=== PATIENT | male | born 1965 | race Caucasian/White ===

== ENCOUNTER 2017-09-11 08:58 | Emergency (ER) | payer SELFPAY ==
[~2017-09-11] VITALS: Ht 170.2 cm; Wt 100.0 kg
[2017-09-11] MEDS ORDERED: SODIUM CHLORIDE 0.9% 1,000 ML IV ONE (11:40)
[2017-09-11] MEDS ORDERED: ONDANSETRON HCL 4MG/2ML VIAL IV STA (11:40)
[2017-09-11] MEDS ORDERED: KETOROLAC 30MG/ML VIAL IV STA (11:40)
[2017-09-11 12:12] LABS: BASOPHILS % 0.7 % (0.0-2.0); EOSINOPHILS % 0.3 % (0.0-5.0); HEMATOCRIT. 44.1 % (42.0-52.0); LYMPHOCYTES % 28.1 % (20.0-50.0); MEAN CORPUSCULAR HEMOGLOBIN 28.5 pg (28.0-32.0); MEAN CORPUSCULAR VOLUME 83.7 fL (80.0-94.0); MEAN PLATELET VOLUME 7.7 fl (7.4-10.4); MONOCYTES % 9.5 % (2.0-8.0); NEUTROPHILS % 61.4 % (40.0-76.0); PLATELET 211 x1000/uL (130-400); RED BLOOD CELL COUNT 5.26 mill/uL (4.7-6.1); RED CELL DISTRIBUTION WIDTH 14.8 % (11.6-14.6)
[2017-09-11 12:18] LABS: CHLORIDE 103 mEq/L (98-107)
[2017-09-11 12:26] LABS: CLARITY URINE CLEAR (CLEAR); COLOR URINE YELLOW (YELLOW); GLUCOSE URINE NEGATIVE (NEGATIVE); KETONES URINE NEGATIVE (NEGATIVE); LEUKOCYTE ESTERASE URINE NEGATIVE (NEGATIVE); NITRITE URINE NEGATIVE (NEGATIVE); OCCULT BLOOD URINE NEGATIVE (NEGATIVE); PH URINE 5.5 (4.5-8.0); PROTEIN URINE 1+ (NEGATIVE); SPECIFIC GRAVITY URINE 1.021 (1.005-1.030); UROBILINOGEN URINE 0.2 E.U./dL (0.2-1.0)
[2017-09-11 12:27] LABS: CARBON DIOXIDE 26 mEq/L (21-32)
[2017-09-11 14:25] VITALS: BP 142/82
== END 2017-09-11 14:25 | disposition home or self-care (01) ==
LOC: ER 09:09
DX: K76.0 Fatty (change of) liver, not elsewhere classified (principal); R10.11 Right upper quadrant pain; R51 Headache; F10.20 Alcohol dependence, uncomplicated; Y90.9 Presence of alcohol in blood, level not specified; Z71.41 Alcohol abuse counseling and surveillance of alcoholic; I10 Essential (primary) hypertension; E78.00 Pure hypercholesterolemia, unspecified
CPT/HCPCS: 36415; 76705; 80053; 81001; 83690; 85025; 96361; 96374; 96375; 99285; J1885; J2405; J7030; J7050; Z7610

== ENCOUNTER 2018-07-11 12:12 | Inpatient (IN) | payer SELFPAY ==
[~2018-07-11] VITALS: Ht 172.7 cm; Wt 90.7 kg
[2018-07-11] MEDS ORDERED: MORPHINE SULFATE 4 MG/ML CPJ (NOT FOR IM USE) IV STA ×2 (12:44→15:37)
[2018-07-11] MEDS ORDERED: ONDANSETRON HCL 4MG/2ML INJ IV STA ×2 (12:44→15:37)
[2018-07-11] MEDS ORDERED: SODIUM CHLORIDE 0.9% 1,000 ML IV ONE (12:44)
[2018-07-11 14:00] LABS: BASOPHILS % 0.5 % (0.0-2.0); EOSINOPHILS % 0.1 % (0.0-5.0); HEMATOCRIT. 45.3 % (42.0-52.0); HEMOGLOBIN. 15.6 g/dL (14.0-18.0); MEAN CORPUSCULAR HEMOGLOBIN 30.1 pg (28.0-32.0); MEAN CORPUSCULAR VOLUME 87.8 fL (80.0-94.0); MEAN PLATELET VOLUME 7.7 fl (7.4-10.4); MONOCYTES % 8.4 % (2.0-8.0); PLATELET 261 x1000/uL (130-400); RED BLOOD CELL COUNT 5.16 mill/uL (4.7-6.1); RED CELL DISTRIBUTION WIDTH 14.9 % (11.6-14.6)
[2018-07-11 14:09] LABS: INR 1.2; PROTHROMBIN TIME 11.9 sec (9.1-11.1)
[2018-07-11 14:19] LABS: CHLORIDE 102 mEq/L (98-107)
[2018-07-11 15:21] LABS: CLARITY URINE CLEAR (CLEAR); COLOR URINE ORANGE (YELLOW); KETONES URINE TRACE (NEGATIVE); LEUKOCYTE ESTERASE URINE TRACE (NEGATIVE); NITRITE URINE NEGATIVE (NEGATIVE); OCCULT BLOOD URINE NEGATIVE (NEGATIVE); PH URINE 5.5 (4.5-8.0); PROTEIN URINE TRACE (NEGATIVE); SPECIFIC GRAVITY URINE 1.021 (1.005-1.030); UROBILINOGEN URINE 0.2 E.U./dL (0.2-1.0)
[2018-07-11] MEDS ORDERED: MAGNESIUM/ALUMINUM HYDROXIDE/SIMETHICONE 30ML UDC PO PRN (16:45)
[2018-07-11] MEDS ORDERED: HALOPERIDOL LACTATE 5MG/ML VIAL IM PRN (16:45)
[2018-07-11] MEDS ORDERED: NITROGLYCERIN 0.4MG TABLET SL SL PRN (16:45)
[2018-07-11] MEDS ORDERED: ONDANSETRON HCL 4MG/2ML INJ IV PRN (16:45)
[2018-07-11] MEDS ORDERED: CLONIDINE 0.1MG TABLET PO PRN (16:45)
[2018-07-11] MEDS ORDERED: GUAIFENESIN 200MG/10ML SUGAR FREE UDC PO PRN (16:45)
[2018-07-11] MEDS ORDERED: DOCUSATE SODIUM 100MG CAPSULE PO PRN (16:45)
[2018-07-11] MEDS ORDERED: ZOLPIDEM TARTRATE 5MG TABLET PO PRN (16:45)
[2018-07-11] MEDS ORDERED: KETOROLAC 15MG/ML VIAL IV PRN (16:45)
[2018-07-11] MEDS ORDERED: IPRATROPIUM/ALBUTEROL 0.5-3(2.5)MG/3ML NEB INH PRN (16:45)
[2018-07-11] MEDS ORDERED: ACETAMINOPHEN 325MG TABLET PO PRN (16:45)
[2018-07-11] MEDS ORDERED: MVI, ADULT NO.1 10 ML, FOLIC ACID 1 MG, THIAMINE HCL 100 MG in SODIUM CHLORIDE 0.9% 1,0... IV SCH ×4 (18:30)
[2018-07-11 21:00] VITALS: BP 162/93
[2018-07-11] MEDS ORDERED: ENOXAPARIN 40MG/0.4ML SYR SUBCUT SCH (21:11)
[2018-07-11] MEDS: SUCRALFATE 1 G/10 ML UDC PO SCH (21:49)
[2018-07-11] MEDS: METOCLOPRAMIDE 10MG/10 ML UDC PO SCH (21:50)
[2018-07-11] MEDS: METOPROLOL TARTRATE 25MG TABLET PO SCH (21:50)
[2018-07-11] MEDS: FAMOTIDINE 20MG TABLET PO SCH (21:50)
[2018-07-11 22:07] VITALS: BP 162/93
[2018-07-12] VITALS: BP 133/87
[2018-07-12 04:00] VITALS: BP 139/79
[2018-07-12] MEDS: SUCRALFATE 1 G/10 ML UDC PO SCH ×2 (06:29→12:36)
[2018-07-12] MEDS: METOCLOPRAMIDE 10MG/10 ML UDC PO SCH ×2 (06:29→12:36)
[2018-07-12 08:00] VITALS: BP 141/78
[2018-07-12] MEDS: FAMOTIDINE 20MG TABLET PO SCH (08:50)
[2018-07-12] MEDS: METOPROLOL TARTRATE 25MG TABLET PO SCH (08:50)
[2018-07-12 10:00] VITALS: BP 132/75
[2018-07-12] MEDS ORDERED: PNEUMOCOCCAL 23-VAL P-SAC VAC 0.5 ML IM ONE (10:00)
[2018-07-12 10:11] VITALS: BP 132/70
[2018-07-12 12:00] VITALS: BP 129/72
[2018-07-12 12:36] LABS: *AMPHETAMINES SCREEN URINE NEGATIVE (NEGATIVE); CANNABINOID URINE SCREEN NEGATIVE (NEGATIVE); PHENCYCLIDINE URINE SCREEN NEGATIVE (NEGATIVE)
[2018-07-12 12:37] LABS: *BARBITURATES SCREEN URINE NEGATIVE (NEGATIVE); *BENZODIAZEPINES SCREEN URINE NEGATIVE (NEGATIVE); *COCAINE SCREEN URINE NEGATIVE (NEGATIVE); METHADONE URINE SCREEN NEGATIVE (NEGATIVE); OPIATES URINE SCREEN PRESUMTIVE POSITIVE (NEGATIVE)
== END 2018-07-12 14:43 | disposition home or self-care (01) | DRG 241 ==
LOC: ER 12:37 → EDBEDREQ 15:17 → EDBEDREQTM 15:17 → 8WST 15:50 → EDBEDREQ 15:57 → EDBEDREQTM 15:57 → ENRESERV 20:04
PROVIDERS: ADMIT Internal Medicine; ATTEND Internal Medicine
DX: K29.70 Gastritis, unspecified, without bleeding (principal); E66.9 Obesity, unspecified; I10 Essential (primary) hypertension; F10.20 Alcohol dependence, uncomplicated; K43.2 Incisional hernia without obstruction or gangrene; Z71.41 Alcohol abuse counseling and surveillance of alcoholic; Z68.30 Body mass index [BMI] 30.0-30.9, adult; Z90.49 Acquired absence of other specified parts of digestive tract
CPT/HCPCS: 36415; 70450; 74176; 80053; 80305; 81003; 83036; 83690; 85025; 85610; 87086; 93005; 93970; 96361; 96374; 96375; 96376; 99285; G0482; J1650; J2270; J2405; J3411; J3490; J7030; J7040; J8597

== ENCOUNTER 2019-10-09 12:52 | Inpatient (IN) | payer MEDICAID ==
[~2019-10-09] VITALS: Ht 172.7 cm; Wt 100.7 kg
[2019-10-09] MEDS ORDERED: SODIUM CHLORIDE 0.9% 1,000 ML IV ONE ×2 (21:44→23:03)
[2019-10-09 22:50] LABS: CHLORIDE 101 mEq/L (98-107)
[2019-10-09 22:51] LABS: INR 1.1; PARTIAL THROMBOPLASTIN TIME 25.7 sec (23.4-31.0); PROTHROMBIN TIME 11.7 sec (9.6-11.0)
[2019-10-09 22:57] LABS: BASOPHILS % 0.5 % (0.0-2.0); EOSINOPHILS % 0.1 % (0.0-5.0); HEMATOCRIT. 49.8 % (42.0-52.0); HEMOGLOBIN. 17.5 g/dL (14.0-18.0); LYMPHOCYTES % 43.3 % (20.0-50.0); MEAN CORPUSCULAR HEMOGLOBIN 30.4 pg (28.0-32.0); MEAN CORPUSCULAR VOLUME 86.6 fL (80.0-94.0); MEAN PLATELET VOLUME 7.7 fl (7.4-10.4); MONOCYTES % 6.4 % (2.0-8.0); NEUTROPHILS % 49.7 % (40.0-76.0); PLATELET 198 x1000/uL (130-400); RED BLOOD CELL COUNT 5.75 mill/uL (4.7-6.1)
[2019-10-09 23:02] LABS: CLARITY URINE CLEAR (CLEAR); COLOR URINE DARK YELLOW (YELLOW); KETONES URINE TRACE (NEGATIVE); LEUKOCYTE ESTERASE URINE NEGATIVE (NEGATIVE); NITRITE URINE NEGATIVE (NEGATIVE); OCCULT BLOOD URINE 1+ (NEGATIVE); PROTEIN URINE 2+ (NEGATIVE); SPECIFIC GRAVITY URINE 1.022 (1.005-1.030)
[2019-10-09] MEDS ORDERED: ONDANSETRON HCL 4MG/2ML INJ IV STA (23:03)
[2019-10-09] MEDS ORDERED: MORPHINE SULFATE 4 MG/ML CPJ (NOT FOR IM USE) IV STA (23:03)
[2019-10-09 23:06] LABS: ETHANOL BLOOD 295 mg/dL
[2019-10-09 23:12] LABS: *AMPHETAMINES SCREEN URINE NEGATIVE (NEGATIVE); *BARBITURATES SCREEN URINE NEGATIVE (NEGATIVE); *BENZODIAZEPINES SCREEN URINE NEGATIVE (NEGATIVE); *COCAINE SCREEN URINE NEGATIVE (NEGATIVE); METHADONE URINE SCREEN NEGATIVE (NEGATIVE); OPIATES URINE SCREEN NEGATIVE (NEGATIVE); PHENCYCLIDINE URINE SCREEN NEGATIVE (NEGATIVE)
[2019-10-09 23:13] LABS: CANNABINOID URINE SCREEN NEGATIVE (NEGATIVE)
[2019-10-10] MEDS ORDERED: ONDANSETRON HCL 4MG/2ML INJ IV PRN (01:00)
[2019-10-10] MEDS ORDERED: MORPHINE SULFATE 2 MG/ML CPJ (NOT FOR IM USE) IV PRN (01:00)
[2019-10-10] MEDS ORDERED: ACETAMINOPHEN 650MG SUPP PR PRN (01:00)
[2019-10-10] MEDS: DEXT 5%/0.45% NACL 1000ML 1,000 ML IV SCH ×2 (01:40→21:54)
[2019-10-10] MEDS: MORPHINE SULFATE 2 MG/ML CPJ (NOT FOR IM USE) IV PRN ×5 (06:01→21:39)
[2019-10-10 11:00] VITALS: BP 148/88
[2019-10-10 11:39] VITALS: BP 176/111
[2019-10-10] MEDS ORDERED: LORAZEPAM 0.5MG TABLET PO PRN (11:45)
[2019-10-10 12:00] VITALS: BP 166/100
[2019-10-10] MEDS ORDERED: METOPROLOL TARTRATE 5MG/5ML VIAL IV SCH ×2 (14:00→18:00)
[2019-10-10 16:00] VITALS: BP 147/87
[2019-10-10 16:27] LABS: HEMATOCRIT 42.6 % (42.0-52.0); HEMOGLOBIN 14.8 g/dL (14.0-18.0); MEAN CORPUSCULAR HEMOGLOBIN 30.4 pg (28.0-32.0); MEAN CORPUSCULAR VOLUME 87.5 fL (80.0-94.0); PLATELET 135 x1000/uL (130-400); RED BLOOD CELL COUNT 4.87 mill/uL (4.7-6.1); RED CELL DISTRIBUTION WIDTH 14.6 % (11.6-14.6)
[2019-10-10 16:38] LABS: CHLORIDE 102 mEq/L (98-107)
[2019-10-10 18:00] VITALS: BP 186/116
[2019-10-10] MEDS: CLONIDINE 0.1MG TABLET PO PRN (19:47)
[2019-10-10 20:00] VITALS: BP 172/102
[2019-10-10] MEDS: HEPARIN 5000 UNITS/ML VIAL SUBCUT SCH (21:00)
[2019-10-11] VITALS: BP 156/98
[2019-10-11] MEDS: HEPARIN 5000 UNITS/ML VIAL SUBCUT SCH ×3 (00:46→20:51)
[2019-10-11 07:43] LABS: BASOPHILS % 0.5 % (0.0-2.0); EOSINOPHILS % 2.1 % (0.0-5.0); HEMATOCRIT. 39.5 % (42.0-52.0); HEMOGLOBIN. 13.8 g/dL (14.0-18.0); LYMPHOCYTES % 35.8 % (20.0-50.0); MEAN CORPUSCULAR HEMOGLOBIN 30.9 pg (28.0-32.0); MEAN CORPUSCULAR VOLUME 88.2 fL (80.0-94.0); MEAN PLATELET VOLUME 8.1 fl (7.4-10.4); MONOCYTES % 10.2 % (2.0-8.0); NEUTROPHILS % 51.4 % (40.0-76.0); PLATELET 117 x1000/uL (130-400); RED BLOOD CELL COUNT 4.48 mill/uL (4.7-6.1); RED CELL DISTRIBUTION WIDTH 14.9 % (11.6-14.6)
[2019-10-11] MEDS: DEXT 5%/0.45% NACL 1000ML 1,000 ML IV SCH (07:47)
[2019-10-11 08:00] LABS: CHLORIDE 102 mEq/L (98-107)
[2019-10-11] MEDS: MORPHINE SULFATE 2 MG/ML CPJ (NOT FOR IM USE) IV PRN ×2 (09:46→20:52)
[2019-10-11] MEDS ORDERED: MAGNESIUM 2 G PREMIX 50 ML IV SCH (11:00)
[2019-10-11 12:00] VITALS: BP 140/94
[2019-10-11] MEDS: DEXT 5%/0.45% NACL KCL 20MEQ/L 1,000 ML IV SCH ×2 (12:26→23:57)
[2019-10-11] MEDS ORDERED: POTASSIUM CHLORIDE 20MEQ/PACKET PO NR (12:30)
[2019-10-11] MEDS ORDERED: MAGNESIUM 2 G PREMIX 50 ML IV ONE (12:30)
[2019-10-11] MEDS: PANTOPRAZOLE SODIUM 40 MG/VIAL IV SCH ×2 (14:38→18:50)
[2019-10-11 16:00] VITALS: BP 154/90
[2019-10-11 20:00] VITALS: BP 171/95
[2019-10-11] MEDS: CLONIDINE 0.1MG TABLET PO PRN (20:50)
[2019-10-12] VITALS: BP 127/88
[2019-10-12 04:00] VITALS: BP 148/85
[2019-10-12 07:08] LABS: CHLORIDE 101 mEq/L (98-107)
[2019-10-12 07:11] LABS: BASOPHILS % 0.5 % (0.0-2.0); EOSINOPHILS % 2.8 % (0.0-5.0); HEMATOCRIT. 40.2 % (42.0-52.0); LYMPHOCYTES % 31.4 % (20.0-50.0); MEAN CORPUSCULAR HEMOGLOBIN 30.9 pg (28.0-32.0); MEAN CORPUSCULAR VOLUME 88.6 fL (80.0-94.0); MEAN PLATELET VOLUME 8.3 fl (7.4-10.4); MONOCYTES % 8.3 % (2.0-8.0); PLATELET 112 x1000/uL (130-400); RED BLOOD CELL COUNT 4.54 mill/uL (4.7-6.1); RED CELL DISTRIBUTION WIDTH 14.8 % (11.6-14.6)
[2019-10-12 07:29] LABS: HEPATITIS B SURFACE ANTIGEN NEGATIVE
[2019-10-12 07:59] LABS: HEPATITIS A AB IGM NEGATIVE (NEGATIVE)
[2019-10-12 08:40] VITALS: BP 159/98
[2019-10-12] MEDS: PANTOPRAZOLE SODIUM 40 MG/VIAL IV SCH ×2 (09:22→18:07)
[2019-10-12] MEDS: CLONIDINE 0.1MG TABLET PO PRN (09:23)
[2019-10-12] MEDS: HEPARIN 5000 UNITS/ML VIAL SUBCUT SCH ×3 (09:23→21:14)
[2019-10-12 12:26] VITALS: BP 129/86
[2019-10-12 17:08] VITALS: BP 137/80
[2019-10-12] MEDS: DEXT 5%/0.45% NACL KCL 20MEQ/L 1,000 ML IV SCH (18:09)
[2019-10-12] MEDS: MORPHINE SULFATE 2 MG/ML CPJ (NOT FOR IM USE) IV PRN (18:23)
[2019-10-12 20:00] VITALS: BP 149/84
[2019-10-12] MEDS: AMLODIPINE 2.5MG TABLET PO SCH (21:11)
[2019-10-13] VITALS: BP 130/66
[2019-10-13] MEDS: MORPHINE SULFATE 2 MG/ML CPJ (NOT FOR IM USE) IV PRN ×3 (01:53→21:16)
[2019-10-13 04:00] VITALS: BP 146/85
[2019-10-13] MEDS: DEXT 5%/0.45% NACL KCL 20MEQ/L 1,000 ML IV SCH ×3 (05:33→16:37)
[2019-10-13 08:00] VITALS: BP 156/87
[2019-10-13] MEDS: PANTOPRAZOLE SODIUM 40 MG/VIAL IV SCH ×2 (08:39→16:38)
[2019-10-13] MEDS: AMLODIPINE 2.5MG TABLET PO SCH ×3 (08:40→21:09)
[2019-10-13] MEDS: HEPARIN 5000 UNITS/ML VIAL SUBCUT SCH ×2 (08:41→21:08)
[2019-10-13 12:00] VITALS: BP 154/80
[2019-10-13 16:00] VITALS: BP 152/90
[2019-10-13 20:00] VITALS: BP 159/104
[2019-10-14] VITALS: BP 146/95
[2019-10-14] MEDS: DEXT 5%/0.45% NACL KCL 20MEQ/L 1,000 ML IV SCH ×5 (00:32→20:18)
[2019-10-14 04:00] VITALS: BP 151/100
[2019-10-14] MEDS: AMLODIPINE 2.5MG TABLET PO SCH ×3 (06:23→21:54)
[2019-10-14] MEDS: MORPHINE SULFATE 2 MG/ML CPJ (NOT FOR IM USE) IV PRN ×2 (06:24→22:06)
[2019-10-14 08:00] VITALS: BP 145/106
[2019-10-14] MEDS: PANTOPRAZOLE SODIUM 40 MG/VIAL IV SCH ×2 (08:44→17:35)
[2019-10-14] MEDS: HEPARIN 5000 UNITS/ML VIAL SUBCUT SCH ×2 (08:47→20:19)
[2019-10-14] MEDS: CLONIDINE 0.1MG TABLET PO PRN (08:48)
[2019-10-14 12:00] VITALS: BP_SYST 128; BP_SYST 131; BP_DIAS 89; BP_DIAS 94
[2019-10-14 16:00] VITALS: BP 143/98
[2019-10-14 20:00] VITALS: BP 165/102
[2019-10-15] VITALS: BP 149/101
[2019-10-15] MEDS: MORPHINE SULFATE 2 MG/ML CPJ (NOT FOR IM USE) IV PRN ×3 (02:35→11:10)
[2019-10-15] MEDS: DEXT 5%/0.45% NACL KCL 20MEQ/L 1,000 ML IV SCH ×3 (03:40→21:51)
[2019-10-15 04:00] VITALS: BP 155/81
[2019-10-15] MEDS: AMLODIPINE 2.5MG TABLET PO SCH ×2 (05:50→13:16)
[2019-10-15 06:46] LABS: HEMATOCRIT. 42.3 % (42.0-52.0); HEMOGLOBIN. 14.6 g/dL (14.0-18.0); MEAN CORPUSCULAR HEMOGLOBIN 30.8 pg (28.0-32.0); MEAN CORPUSCULAR VOLUME 89.4 fL (80.0-94.0); MEAN PLATELET VOLUME 8.1 fl (7.4-10.4); PLATELET 111 x1000/uL (130-400); RED BLOOD CELL COUNT 4.73 mill/uL (4.7-6.1); RED CELL DISTRIBUTION WIDTH 14.7 % (11.6-14.6)
[2019-10-15 06:55] LABS: CHLORIDE 104 mEq/L (98-107)
[2019-10-15 08:00] VITALS: BP 142/99
[2019-10-15] MEDS: HEPARIN 5000 UNITS/ML VIAL SUBCUT SCH ×2 (09:22→21:51)
[2019-10-15] MEDS: PANTOPRAZOLE SODIUM 40 MG/VIAL IV SCH ×2 (11:07→18:39)
[2019-10-15 12:00] VITALS: BP 153/99
[2019-10-15 13:50] LABS: PLATELET ESTIMATE SLIGHTLY DECREASED
[2019-10-15] MEDS ORDERED: IOHEXOL-300 100 ML BOTTLE ONE (14:52)
[2019-10-15 16:00] VITALS: BP 140/80
[2019-10-15 20:00] VITALS: BP 158/97
[2019-10-15] MEDS: AMLODIPINE 5MG TABLET PO SCH (21:48)
[2019-10-16] VITALS: BP 148/86
[2019-10-16 04:00] VITALS: BP 124/94
[2019-10-16] MEDS: DEXT 5%/0.45% NACL KCL 20MEQ/L 1,000 ML IV SCH ×3 (04:52→20:36)
[2019-10-16 08:00] VITALS: BP 145/89
[2019-10-16] MEDS: PANTOPRAZOLE SODIUM 40 MG/VIAL IV SCH ×2 (08:55→16:28)
[2019-10-16] MEDS: HEPARIN 5000 UNITS/ML VIAL SUBCUT SCH ×2 (08:55→20:34)
[2019-10-16] MEDS: AMLODIPINE 5MG TABLET PO SCH ×2 (08:56→20:33)
[2019-10-16 12:00] VITALS: BP 139/86
[2019-10-16] MEDS: LOSARTAN POTASSIUM 25 MG TABLET PO SCH ×2 (13:47→20:32)
[2019-10-16] MEDS ORDERED: LORAZEPAM 0.5MG TABLET PO PRN (14:30)
[2019-10-16 16:00] VITALS: BP 132/88
[2019-10-16] MEDS: BACLOFEN 10MG TABLET PO PRN (16:28)
[2019-10-16 20:00] VITALS: BP 134/88
[2019-10-17] VITALS: BP 116/71
[2019-10-17] MEDS: BACLOFEN 10MG TABLET PO PRN ×2 (01:13→13:14)
[2019-10-17 04:00] VITALS: BP 106/73
[2019-10-17] MEDS: DEXT 5%/0.45% NACL KCL 20MEQ/L 1,000 ML IV SCH ×2 (04:51→13:14)
[2019-10-17 07:51] LABS: HEMATOCRIT. 40.8 % (42.0-52.0); HEMOGLOBIN. 14.1 g/dL (14.0-18.0); MEAN CORPUSCULAR HEMOGLOBIN 31.1 pg (28.0-32.0); MEAN CORPUSCULAR VOLUME 89.7 fL (80.0-94.0); MEAN PLATELET VOLUME 8.1 fl (7.4-10.4); PLATELET 136 x1000/uL (130-400); RED BLOOD CELL COUNT 4.54 mill/uL (4.7-6.1); RED CELL DISTRIBUTION WIDTH 14.5 % (11.6-14.6)
[2019-10-17 07:59] LABS: CHLORIDE 106 mEq/L (98-107)
[2019-10-17 08:00] VITALS: BP 133/79
[2019-10-17] MEDS: HEPARIN 5000 UNITS/ML VIAL SUBCUT SCH (08:51)
[2019-10-17] MEDS: LOSARTAN POTASSIUM 25 MG TABLET PO SCH (08:51)
[2019-10-17] MEDS: PANTOPRAZOLE SODIUM 40 MG/VIAL IV SCH ×2 (08:51→16:09)
[2019-10-17] MEDS: AMLODIPINE 5MG TABLET PO SCH (08:51)
[2019-10-17 11:00] LABS: PLATELET ESTIMATE NORMAL
[2019-10-17 12:00] VITALS: BP 122/78
[2019-10-17] MEDS ORDERED: AMLO5TAB88 PO (13:53)
[2019-10-17] MEDS ORDERED: LOSA25TA3 PO (13:53)
[2019-10-17] MEDS ORDERED: BACL-141 PO (13:53)
[2019-10-17 16:00] VITALS: BP 146/89
[2019-10-17 16:14] VITALS: BP 146/89
== END 2019-10-17 17:55 | disposition home or self-care (01) | DRG 282 ==
LOC: ER 12:52 → 6EST 10-10 00:56 → EDBEDREQ 10-10 01:25 → ENRESERV 10-10 08:53 → 6WST 10-10 17:38 → 5WST 10-13 07:04
PROVIDERS: ADMIT Internal Medicine; ATTEND Internal Medicine
DX: K85.20 Alcohol induced acute pancreatitis without necrosis or infection (principal); D69.59 Other secondary thrombocytopenia; I11.9 Hypertensive heart disease without heart failure; K74.60 Unspecified cirrhosis of liver; K43.9 Ventral hernia without obstruction or gangrene; E83.42 Hypomagnesemia; K92.1 Melena; E87.6 Hypokalemia; Y90.8 Blood alcohol level of 240 mg/100 ml or more; K76.0 Fatty (change of) liver, not elsewhere classified; Z90.49 Acquired absence of other specified parts of digestive tract
CPT/HCPCS: 36415; 71045; 74176; 74177; 76705; 80048; 80053; 80076; 80305; 80320; 81003; 82140; 82270; 83735; 84443; 84484; 85025; 85027; 86705; 86709; 86803; 86850; 86900; 87340; 93005; 93306; 96374; 99285; C9113; J1644; J2270; J2405; J3475; J3490; J7030; Q9967; G0480